=== PATIENT | male | born 1955 | race Two or more races ===

== ENCOUNTER 2020-06-16 13:41 | Inpatient (IN) | payer MEDICARE, MEDICAID ==
[~2020-06-16] VITALS: Ht 182.9 cm; Wt 108.0 kg
[2020-06-16] MEDS ORDERED: magnesium hydroxide 30ml (MOM) UD suspension PO PRN (16:05)
[2020-06-16] MEDS ORDERED: mag hydrox/Alum hydrox/simeth 30ml oral suspension PO PRN (16:05)
[2020-06-16] MEDS ORDERED: NICOTINE POLACRILEX 2 MG LOZENGE BC PRN (16:05)
[2020-06-16] MEDS ORDERED: traZODone 50mg tablet PO PRN (16:05)
[2020-06-16] MEDS ORDERED: acetaminophen 325mg tablet PO PRN ×2 (16:05)
[2020-06-16] MEDS ORDERED: loperamide 2mg capsule PO PRN (16:05)
[2020-06-16] MEDS ORDERED: DILT180C66 PO (16:27)
[2020-06-16] MEDS ORDERED: coumadin (16:27)
[2020-06-16] MEDS ORDERED: RISP2TAB85 PO (16:27)
[2020-06-16] MEDS ORDERED: FLO0.4C PO (16:27)
--- NOTE | 2020-06-17 14:50 | NUR ---
Admission Note: Pt. arrived on the unit at approximately 1450 in a stretcher accompanied by EMS and security. He was transferred from [facility]. Pt. is currently homeless and was placed on a 5150 for GD after drinking and getting on a bus to what he thought was [place], however ending up in [place]. Pt. has a history of schizoaffective disorder with Bipolar, and has had multiple previous psych hospital admissions. His father two years ago, and it was reported that since that time he has been non-compliant with medications or treatment. Pt's toxicology screen was positive for amphetamines, but he denies any recent drug use. He does admit to drinking approximately a 6-pack of beer/day. Pt. belongings inventoried and safety check completed by [employer]. Pt. is A&O X4 and cooperative with assessment. Pt. scored as a high suicide risk on the [place] Suicide Risk Assessment, with a plan to jump in front of a bus. However, he is able to contract for safety while on the unit. Dr. Johnston notified, and Q 15 min safety checks ordered. Pt. also reports A/DUMONT which have been worsening since the age of 59. When questioned further regarding these he states, "It is a man and a woman. They mostly bash on me and expose all of my shortcomings." He denies any V/DUMONT. Addendum: 06/17/20 at 1730 by Kathie Andrew RN Pt's Son Shay (emergency contact) [phone]
[2020-06-17 15:15] VITALS: BP 109/83
[2020-06-17 19:12] VITALS: BP 117/69
[2020-06-17] MEDS ORDERED: warfarin 5mg tablet PO ONE (21:00)
[2020-06-17] MEDS: risperiDONE 2mg tablet PO SCH (21:26)
--- NOTE | 2020-06-17 23:04 | NUR ---
Nursing Progress Note: Legal hold: 5150 Client on involuntary status for DTS Report received from [facility] with use of SBAR Why are they here: Pt. arrived on the unit at approximately 1450 in a stretcher accompanied by EMS and security. He was transferred from [facility]. Pt. is currently homeless and was placed on a 5150 for GD after drinking and getting on a bus to what he thought was [place], however ending up in [place]. Pt. has a history of schizoaffective disorder with Bipolar, and has had multiple previous psych hospital admissions. His father two years ago, and it was reported that since that time he has been non-compliant with medications or treatment. Pt's toxicology screen was positive for amphetamines, but he denies any recent drug use. He does admit to drinking approximately a 6-pack of beer/day. Pt. belongings inventoried and safety check completed by [employer]. Pt. is A&O X4 and cooperative with assessment. Pt. scored as a high suicide risk on the [place] Suicide Risk Assessment, with a plan to jump in front of a bus. However, he is able to contract for safety while on the unit. Dr. Johnston notified, and Q 15 min safety checks ordered. Pt. also reports A/DUMONT which have been worsening since the age of 59. When questioned further regarding these he states, "It is a man and a woman. They mostly bash on me and expose all of my shortcomings." He denies any V/DUMONT. Assessment What has happened this shift: Pt was sitting in the group room at change of shift with a blanket wrapped around him. Pt states he is watching tv because it helps drowned out the voices he is hearing. Pt states he was told he isnt going to live to make it to see 02 of February because of his liver. Pt states he doesnt really have any plans for his life at this point, because he doesnt know how long hes going to live. Pt had both flu and pneumonia vaccine tonight, pt tolerated well. S/I, H/I: denies A/VH: hearing voices Sleep: see sleep hours, pt states he didnt sleep well last night because where he was but he is certain he will sleep well tonight because its quiet. ADL's: independent Group attendance: no evening groups Were meds taken: yes Any med S/E: None reported or observed Mental Status Exam Appearance: disheveled, long hair, wearing green scrubs with blanket wrapped around him. Eye contact: good Behavior: calm cooperative watching tv Speech: normal rate and rhythm Mood: depressed, hopeless Affect: withdrawn Thought process: linear Thought Content: hearing voices, he is here thinking he would like to find an alcohol recovery treatment center to live in. Cognition: a/ox4 Insight: fair Judgment: fair Interventions Therapeutic interventions: Introduced self and established rapport, maintained a safe and supportive environment, ensured contract for safety, provided active listening and positive encouragement, encouraged participation on the unit, spoke with pt.s mom with pt.s consent, and maintained Q 15min safety checks. Restraints/seclusion/emergency medication: None Justification of Continued Inpatient Treatment: Pt. requires interruption of current crisis, medication adjustments, and a safe and supportive environment.
[2020-06-18 08:22] VITALS: BP 113/76
[2020-06-18] MEDS: tamsulosin 0.4mg capsule PO SCH (08:45)
[2020-06-18] MEDS: diltiazem CD 180mg cap (once-daily) PO SCH (08:45)
[2020-06-18] MEDS: nicotine 14mg patch - 24hr TD SCH (08:46)
[2020-06-18 09:15] LABS: CLARITY,URINE CLEAR (Clear); COLOR,URINE YELLOW (Yellow); GLUCOSE, URINE NEGATIVE (Neg); KETONES,URINE NEGATIVE (Neg); LEUKOCYTE ESTERASE ,URINE NEGATIVE (Neg); NITRITES, URINE NEGATIVE (Neg); OCCULT BLOOD,URINE NEGATIVE (Neg); PH,URINE 5.5 (4.8-8.0); PROTEIN,URINE NEGATIVE (Neg); UROBILINOGEN,URINE 0.2 E.U/dL (0.2-1.0)
[2020-06-18 09:19] LABS: UA COLLECTION TYPE CLN CATCH MIDSTREAM
[2020-06-18] MEDS ORDERED: FLU VACC QS2020-21(6MOS UP)/PF 60 MCG/0.5 ML SYRINGE IMVAC ONE (10:00)
[2020-06-18] MEDS ORDERED: pneumococcal 23-VAL P-sac vacc 25 mcg/0.5ml vial IMVAC ONE (10:00)
[2020-06-18 10:04] LABS: BASOPHILS % (AUTO) 0.7 % (0-1); EOSINOPHILS # (AUTO) 0.1 X10'3 (0-0.9); EOSINOPHILS % (AUTO) 1.9 % (0-6); HEMATOCRIT 44.4 % (42.0-52.0); HEMOGLOBIN 14.8 g/dl (14.0-17.9); LYMPHOCYTES # (AUTO) 1.7 X10'3 (1.1-4.8); LYMPHOCYTES % (AUTO) 24.6 % (21-51); MEAN CORPUSCULAR HEMOGLOBIN 31.8 PG (27.0-31.0); MEAN CORPUSCULAR HGB CONC 33.3 g/dL (33.0-36.5); MEAN CORPUSCULAR VOLUME 95.5 FL (78-98); MEAN PLATELET VOLUME 8.1 FL (7.4-10.4); MONOCYTES # (AUTO) 0.4 X10'3 (0-0.9); MONOCYTES % (AUTO) 6.4 % (2-12); NEUTROPHILS # (AUTO) 4.5 X10'3 (1.8-7.7); NEUTROPHILS % (AUTO) 66.4 % (42-75); PLATELET COUNT 60 X10'3 (140-440); RED BLOOD COUNT 4.65 X10'6 (4.70-6.10); RED CELL DISTRIBUTION WIDTH 13.2 % (11.5-14.5); WHITE BLOOD COUNT 6.8 X10'3 (4.5-11.0)
[2020-06-18 10:14] LABS: PARTIAL THROMBOPLASTIN TIME 30 SECONDS (22-32)
[2020-06-18 10:24] LABS: ALANINE AMINOTRANSFERASE 98 U/L (12-78); ALBUMIN/GLOBULIN RATIO 0.8 (1.1-1.5); ALKALINE PHOSPHATASE 57 IU/L (46-116); ANION GAP 2 (8-16); ASPARTATE AMINO TRANSFERASE 89 U/L (10-37); BILIRUBIN,TOTAL 0.3 MG/DL (0.1-1.0); BLOOD UREA NITROGEN 17 MG/DL (7-18); BUN/CREATININE RATIO 21.3 (5.4-32.0); CALCIUM 8.6 MG/DL (8.5-10.1); CHLORIDE 105 MMOL/L (99-107); CHOL/HDL RATIO 2.1 (0.00-4.99); CHOLESTEROL 155 MG/DL (0-200); GLUCOSE 97 MG/DL (70-104); HDL CHOLESTEROL 74 MG/DL (35-60); LDL CHOLESTEROL 68 MG/DL (50-100); SODIUM 138 MMOL/L (135-145); TOTAL CARBON DIOXIDE 30.8 MMOL/L (24-32); TRIGLYCERIDES 62 MG/DL (20-135); eGFR > 90 ML/MIN
--- NOTE | 2020-06-18 15:48 | NUR ---
Nursing Progress Note: Legal hold: 5150 Client on involuntary status for GD Report received from nurse with use of SBAR: DESTINI Richmond Why are they here: Pt. was transferred from [facility]. Pt. is currently homeless and was placed on a 5150 for GD after drinking and getting on a bus to what he thought was [place], however ending up in [place]. Pt. has a history of schizoaffective disorder with Bipolar, and has had multiple previous psych hospital admissions. His father two years ago, and it was reported that since that time he has been non-compliant with medications or treatment. Pt's toxicology screen was positive for amphetamines, but he denies any recent drug use. He does admit to drinking approximately a 6-pack of beer/day. Pt. scored as a high suicide risk on the [place] Suicide Risk Assessment, with a plan to jump in front of a bus. However, he is able to contract for safety while on the unit. Pt. also reports A/DUMONT which have been worsening since the age of 59. When questioned further regarding these he states, "It is a man and a woman. They mostly bash on me and expose all of my shortcomings." He denies any V/DUMONT. Assessment What has happened this shift: Received pt. sleeping in bed at the beginning of the shift, he was awoken by staff to attend breakfast in the group room. Afterwards, pt. retreated to bed and continued to isolate here napping intermittently throughout much of the day. 1:1 completed at bedside, pt. presents as cooperative and pleasant, however withdrawn. He denies any current S/I, however admits that the thoughts come and go. Pt. states, "I feel safe here, I'm happy to not be out on the streets." When questioned regarding A/V/DUMONT, pt. denies these as well and states, "It's nice and quiet here." He reports that his A/DUMONT are worsened by being in a loud and noisy environment. Pt's thought process is tangental and and he frequently wanders off topic, however is able to be redirected. Pt. attends all meals, and awakens in the afternoon to attend snack. He then remains up sitting in the Group Room and telephones his son. Pt. reports that he would possibly like to discharge to [facility] in [place], [place] because this is a place he has stayed before and he would be close to his son, pediatric social worker is aware. Urine sample obtained per MD order and was WNL, pt. denies any urinary frequency or burning. S/I, H/I: Denies A/VH: Denies, does not appear internally preoccupied Sleep: Pt. reports he slept well, sleep hours are 7.5 and pt. naps intermittently throughout the shift. ADL's: Requires some encouragement from staff Group attendance: No Were meds taken: Yes Any med S/E: None Mental Status Exam Appearance: Hair somewhat disheveled, however appropriately dressed Eye contact: Good Behavior: Cooperative, pleasant, and fatigued Speech: WNL, somewhat slurred and difficult to understand at times, but pt. repeats self as necessary Mood: Pleasant Affect: Blunted with animation Thought process: Tangental, but able to be redirected Thought Content: Ongoing A/DUMONT Cognition: A&O X4 Insight: Poor Judgment: Poor Interventions PRN's used: None Therapeutic interventions: Ensured contract for safety, maintained a safe and therapeutic environment, provided clear and simple instructions, reoriented to reality as needed, encouraged independent performance of ADLs and participation on the unit, obtained ordered urine specimen which was WNL, and maintained Q 15min safety checks. Restraints/seclusion/emergency medication: N/A Justification of Continued Inpatient Treatment: Pt. requires interruption of current crisis, medication adjustments, and a safe and supportive environment.
[2020-06-18 19:40] VITALS: BP 116/74
[2020-06-18] MEDS: risperiDONE 2mg tablet PO SCH (20:11)
[2020-06-18] MEDS ORDERED: aripiprazole 5mg tablet PO SCH (21:00)
[2020-06-18] MEDS ORDERED: warfarin 5mg tablet PO ONE (21:00)
--- NOTE | 2020-06-18 22:21 | NUR ---
Nursing Progress Note: Legal hold: 5150 Client on involuntary status for GD Report received from nurse with use of SBAR: DESTINI Richmond Why are they here: Pt. was transferred from [facility]. Pt. is currently homeless and was placed on a 5150 for GD after drinking and getting on a bus to what he thought was [place], however ending up in [place]. Pt. has a history of schizoaffective disorder with Bipolar, and has had multiple previous psych hospital admissions. His father two years ago, and it was reported that since that time he has been non-compliant with medications or treatment. Pt's toxicology screen was positive for amphetamines, but he denies any recent drug use. He does admit to drinking approximately a 6-pack of beer/day. Pt. scored as a high suicide risk on the [place] Suicide Risk Assessment, with a plan to jump in front of a bus. However, he is able to contract for safety while on the unit. Pt. also reports A/DUMONT which have been worsening since the age of 59. When questioned further regarding these he states, "It is a man and a woman. They mostly bash on me and expose all of my shortcomings." He denies any V/DUMONT. Assessment What has happened this shift: Pt was sitting in the group room at change of shift watching tv. Pt denies s/i, denies a/vh. Pt states he is hopeful to get to [facility], to be near his family. [place] [facility] [place] 6 miles from his son. Pt states he is hopeful the administrator social welfare can get him near his son. S/I, H/I: Denies A/VH: Denies, does not appear internally preoccupied Sleep: see sleep hours ADL's: Requires some encouragement from staff Group attendance: No Were meds taken: Yes Any med S/E: None Mental Status Exam Appearance: Hair somewhat disheveled, however appropriately dressed Eye contact: Good Behavior: Cooperative, pleasant, and fatigued Speech: WNL, somewhat slurred and difficult to understand at times, but pt. repeats self as necessary Mood: depressed Affect: Blunted with animation Thought process: Tangential, but able to be redirected Thought Content: Ongoing A/DUMONT Cognition: A&O X4 Insight: Poor Judgment: Poor Interventions PRN's used: None Therapeutic interventions: Ensured contract for safety, maintained a safe and therapeutic environment, provided clear and simple instructions, reoriented to reality as needed, encouraged independent performance of ADLs and participation on the unit, obtained ordered urine specimen which was WNL, and maintained Q 15min safety checks. Restraints/seclusion/emergency medication: N/A Justification of Continued Inpatient Treatment: Pt. requires interruption of current crisis, medication adjustments, and a safe and supportive environment.
[2020-06-19 07:22] LABS: BASOPHILS # (AUTO) 0.1 X10'3 (0-0.2); EOSINOPHILS # (AUTO) 0.2 X10'3 (0-0.9); EOSINOPHILS % (AUTO) 2.3 % (0-6); HEMATOCRIT 44.7 % (42.0-52.0); HEMOGLOBIN 14.9 g/dl (14.0-17.9); LYMPHOCYTES # (AUTO) 1.9 X10'3 (1.1-4.8); LYMPHOCYTES % (AUTO) 28.9 % (21-51); MEAN CORPUSCULAR HEMOGLOBIN 31.9 PG (27.0-31.0); MEAN CORPUSCULAR HGB CONC 33.2 g/dL (33.0-36.5); MEAN PLATELET VOLUME 7.9 FL (7.4-10.4); MONOCYTES # (AUTO) 0.5 X10'3 (0-0.9); MONOCYTES % (AUTO) 7.2 % (2-12); NEUTROPHILS # (AUTO) 4.1 X10'3 (1.8-7.7); NEUTROPHILS % (AUTO) 60.6 % (42-75); PLATELET COUNT 59 X10'3 (140-440); RED BLOOD COUNT 4.65 X10'6 (4.70-6.10); RED CELL DISTRIBUTION WIDTH 13.3 % (11.5-14.5); WHITE BLOOD COUNT 6.7 X10'3 (4.5-11.0)
[2020-06-19 08:00] VITALS: BP 122/86
[2020-06-19] MEDS: nicotine 14mg patch - 24hr TD SCH (08:59)
[2020-06-19] MEDS: diltiazem CD 180mg cap (once-daily) PO SCH (08:59)
[2020-06-19] MEDS: tamsulosin 0.4mg capsule PO SCH (09:00)
--- NOTE | 2020-06-19 10:00 | NUR ---
Group Therapy: Process Group This Clinicians goals for this process group were as follows: (1) Ask scaling questions about Patients current anxiety, depression, and irritability symptoms as a check-in. (2) Share with patients psychoeducation about the importance of being able to identify safe, and supportive people who can assist them with their mental and emotional needs. (3) Share psychoeducation on interpersonal boundaries and considerations to assist patients in developing the ability to discern which groups and individuals will be helpful in assisting them during times of emotional escalation and crisis. (4) Engage patients in discussion of the topics discussed within the group milieu. Patient identified experiencing the following levels of anxiety, depression, and anger/irritability while present in the group milieu (0-low; 10-High). Anxiety: 5-6/10 Depression: 2/10 Anger/irritability: No answer give. Comments made about lack of sleep and hallucinations during the night Patient presented as properly oriented x4 during the process group. Patient was dressed in green hospital scrubs within the milieu. Psychomotor activity was unremarkable. Patient's thought content was clear, and concrete. Patient's thought process was circumstantial, and tangential. For example this Clinician asked Patient to deep his level of anger/irritability from 0-10, ten being high. Patient began commenting on his lack of sleep the previous night, in a night that was marked by hallucinations that he wasn't sure were, "Real, or not," but he stated that he felt like they were, "Bashing me." This Clinician did not observe Patient responding to any internal stimuli during session. The rate, latency, and tone of Patients speech was within normal limits. Patients speech appeared slightly circumstantial, but was largely understandable. Patient maintained intermittent eye contact with this Clinician. Patient presented in calm euthymic mood, with congruent affect during the process group. Patient presented as open, cooperative, verbally engaged when addressed by this Clinician, and nonobtrusive within the group milieu. In the context of sharing aspects of his mental health situation with friends and family, Patient reported that he tended not to do this, because he preferred to keep the topic of conversation off of him, so that it focused on others instead. Aneesh Baca MA, PIPE LINE REPAIRER Addendum: 06/19/20 at 1137 by Aneesh Baca SS Amended: Links added.
[2020-06-19] MEDS: LORazepam 1 MG tablet PO PRN (15:36)
--- NOTE | 2020-06-19 16:19 | NUR ---
Nursing Progress Note: Legal hold: 5150 Expires 06/20 @ 1445 Client on involuntary status for GD Report received from nurse with use of SBAR: DESTINI Richmond Why are they here: Pt. was transferred from [facility]. Pt. is currently homeless and was placed on a 5150 for GD after drinking and getting on a bus to what he thought was [place], however ending up in [place]. Pt. has a history of schizoaffective disorder with Bipolar, and has had multiple previous psych hospital admissions. His father two years ago, and it was reported that since that time he has been non-compliant with medications or treatment. Pt's toxicology screen was positive for amphetamines, but he denies any recent drug use. He does admit to drinking approximately a 6-pack of beer/day. Pt. scored as a high suicide risk on the [place] Suicide Risk Assessment, with a plan to jump in front of a bus. However, he is able to contract for safety while on the unit. Pt. also reports A/DUMONT which have been worsening since the age of 59. When questioned further regarding these he states, "It is a man and a woman. They mostly bash on me and expose all of my shortcomings." He denies any V/DUMONT. Assessment What has happened this shift: Received patient sleeping at shift, no distress noted. Pt wakes for vitals, AM medications and 1:1. Pt declined his breakfast states I was too tired, but ate 100% of lunch. Pt slept most of the morning, states he didnt sleep well. It is difficult to understand patient r/t to his mumbled speech. Pt states he has a speech impediment. Pt is compliant with medication and care. Pt denies SI/HI/AH/VH. When asked about S/I, pt states I am eventually going to . He states this is r/t his medical issues. Has no plan. Pt was up in group room during PM group, but was not engaged in session. Pt reported feeling some anxiety and requested Ya throw something at me. PRN Ativan administered with positive effect. Pt does go off topic at times, but when question is repeated pt answers. Pt has no somatic complaints, when asked about urination its okay for now. No ETOH withdrawal symptoms reported or observed. S/I, H/I: Denies both. A/VH: Denies, does not appear internally preoccupied Sleep: 8.25 hours per Sleep Assessment. Napped after breakfast. ADL's: Independent with prompting. Group attendance: Went to PM group sat in back of room. Were meds taken: Yes, without incident. Any med S/E: None reported or observed. Mental Status Exam Appearance: Disheveled, scruffy facial hair, wearing green unit scrubs. Eye contact: Good Behavior: Cooperative, pleasant, slept in AM, then up sitting in group room. Speech: Somewhat slurred and difficult to understand at times, but pt. repeats self as necessary Mood: Euthymic, pleasant Affect: Blunted with animation Thought process: Tangential, but able to be redirected Thought Content: Situational Cognition: A&O X4 Insight: Poor Judgment: Poor Interventions PRN's used: Ativan Therapeutic interventions: Maintained a safe and therapeutic environment, provided clear and simple instructions, reoriented to reality as needed, encouraged independent performance of ADLs and participation on the unit, obtained ordered urine specimen which was WNL, and maintained Q 15min safety checks. Restraints/seclusion/emergency medication: N/A Justification of Continued Inpatient Treatment: Patient requires interruption of current crisis, medication adjustments, and a safe and supportive environment.
[2020-06-19 19:19] VITALS: BP 132/85
[2020-06-19] MEDS: aripiprazole 5mg tablet PO SCH (20:22)
[2020-06-19] MEDS: traZODone 50mg tablet PO SCH (20:22)
[2020-06-19] MEDS ORDERED: warfarin 5mg tablet PO ONE (21:00)
--- NOTE | 2020-06-19 21:34 | NUR ---
Nursing Progress Note: Legal hold: 5150 Expires 06/20 @ 1445 Client on involuntary status for GD Report received from nurse with use of SBAR: DESTINI Chau Why are they here: Pt. was transferred from [facility]. Pt. is currently homeless and was placed on a 5150 for GD after drinking and getting on a bus to what he thought was [place], however ending up in [place]. Pt. has a history of schizoaffective disorder with Bipolar, and has had multiple previous psych hospital admissions. His father two years ago, and it was reported that since that time he has been non-compliant with medications or treatment. Pt's toxicology screen was positive for amphetamines, but he denies any recent drug use. He does admit to drinking approximately a 6-pack of beer/day. Pt. scored as a high suicide risk on the [place] Suicide Risk Assessment, with a plan to jump in front of a bus. However, he is able to contract for safety while on the unit. Pt. also reports A/DUMONT which have been worsening since the age of 59. When questioned further regarding these he states, "It is a man and a woman. They mostly bash on me and expose all of my shortcomings." He denies any V/DUMONT. Assessment What has happened this shift: Pt was sitting in group room watching tv at change of shift. Pt states he had a good day and mentions having ativan earlier and states that really relaxed him. Pt states he didnt sleep well last night and suggests maybe it was too noisy for him with moving to a new room. Pt was given earplugs tonight to see if this helps. Pt socializes minimally with other patients when they speak to him. S/I, H/I: Denies both. A/VH: Denies, does not appear internally preoccupied Sleep:see sleep hours ADL's: Independent with prompting. Group attendance: no evening groups Were meds taken: Yes Any med S/E: None reported or observed. Mental Status Exam Appearance: Disheveled, scruffy facial hair, wearing green unit scrubs. Eye contact: Good Behavior: Cooperative, pleasant, Speech: Somewhat slurred and difficult to understand at times, but pt. repeats self as necessary Mood: depressed, some anxiety Affect: Blunted but brightens at times Thought process: Tangential Thought Content: talking about not being able to sleep well last night Cognition: A&O X4 Insight: Poor Judgment: Poor Interventions PRN's used: trazadone Therapeutic interventions: Maintained a safe and therapeutic environment, provided clear and simple instructions, reoriented to reality as needed, encouraged independent performance of ADLs and participation on the unit, obtained ordered urine specimen which was WNL, and maintained Q 15min safety checks. Restraints/seclusion/emergency medication: N/A Justification of Continued Inpatient Treatment: Patient requires interruption of current crisis, medication adjustments, and a safe and supportive environment.
[2020-06-20 07:05] LABS: BASOPHILS # (AUTO) 0.1 X10'3 (0-0.2); BASOPHILS % (AUTO) 0.9 % (0-1); EOSINOPHILS # (AUTO) 0.1 X10'3 (0-0.9); EOSINOPHILS % (AUTO) 1.8 % (0-6); HEMATOCRIT 43.6 % (42.0-52.0); HEMOGLOBIN 14.7 g/dl (14.0-17.9); LYMPHOCYTES # (AUTO) 1.6 X10'3 (1.1-4.8); LYMPHOCYTES % (AUTO) 22.8 % (21-51); MEAN CORPUSCULAR HEMOGLOBIN 32.2 PG (27.0-31.0); MEAN CORPUSCULAR HGB CONC 33.7 g/dL (33.0-36.5); MEAN CORPUSCULAR VOLUME 95.6 FL (78-98); MEAN PLATELET VOLUME 7.9 FL (7.4-10.4); MONOCYTES # (AUTO) 0.6 X10'3 (0-0.9); NEUTROPHILS # (AUTO) 4.7 X10'3 (1.8-7.7); NEUTROPHILS % (AUTO) 66.5 % (42-75); PLATELET COUNT 59 X10'3 (140-440); RED BLOOD COUNT 4.56 X10'6 (4.70-6.10); RED CELL DISTRIBUTION WIDTH 13.5 % (11.5-14.5); WHITE BLOOD COUNT 7.1 X10'3 (4.5-11.0)
[2020-06-20] MEDS: nicotine 14mg patch - 24hr TD SCH (07:33)
[2020-06-20] MEDS: diltiazem CD 180mg cap (once-daily) PO SCH (07:33)
[2020-06-20] MEDS: tamsulosin 0.4mg capsule PO SCH (07:33)
[2020-06-20 07:40] VITALS: BP 139/84
--- NOTE | 2020-06-20 10:00 | NUR ---
Group Therapy: Process Group This Clinicians goals for this process group were as follows: (1) Ask scaling questions about Patients current anxiety, depression, and irritability symptoms as a check-in. (2) Share with patients psychoeducation about personal boundariesrigid, porous, and healthy. (3) Share psychoeducation on different types of personal boundariesphysical, intellectual, emotional, sexual, material, timeand discuss Rights of assertive individuals. (4) Engage Patients in discussion of the topics discussed within the group milieu. Patient identified experiencing the following levels of anxiety, depression, and anger/irritability while present in the group milieu (0-low; 10-High). Anxiety: 11/09 Depression: 09/11 Anger/irritability: 11/09 Patient presented as properly oriented x4 during the process group. Patient was dressed in [facility] scrubs within the milieu. Psychomotor activity was unremarkable. Patient's thought content was clear, and concrete. Patient's thought process was clear, coherent, and linear. This Clinician did not observe Patient responding to any internal stimuli during session. The rate, latency, and tone of Patients speech was within normal limits. Patients speech was clear, and understandable. Patient maintained intermittent eye contact with this Clinician during the brief time that he was in the group milieu. Patient presented in calm euthymic mood, with congruent affect during the process group. Patient presented as cooperative, verbally engaged when addressed by this Clinician, and nonobtrusive within the group milieu. Patient reported that he was feeling restless during his initial check-in with this Clinician, and reported that he felt tension in his, Solar plexus. He mentioned that he was spending a lot of time thinking about where he was going to be going after he was discharged from the [place]. Patient did not participate in a substantial way during the process group discussion on personal boundaries. He left shortly after the initial check-ins that this Clinician did with his peers and did not return. Aneesh Baca MA, ADMINISTRATION PHYSICIAN Addendum: 11/20/20 at 0819 by Aneesh MEDEROS Amended: Links added.
--- NOTE | 2020-06-20 12:07 | NUR ---
Nursing Progress Note: Legal hold: 5150 Expires 06/20 @ 1445 Client on involuntary status for GD Report received from DESTINI Richmond with use of SBAR Why are they here: Pt. was transferred from [facility]. Pt. is currently homeless and was placed on a 5150 for GD after drinking and getting on a bus to what he thought was [place], however ending up in [place]. Pt. has a history of schizoaffective disorder with Bipolar, and has had multiple previous psych hospital admissions. His father two years ago, and it was reported that since that time he has been non-compliant with medications or treatment. Pt's toxicology screen was positive for amphetamines, but he denies any recent drug use. He does admit to drinking approximately a 6-pack of beer/day. Pt. scored as a high suicide risk on the [place] Suicide Risk Assessment, with a plan to jump in front of a bus. However, he is able to contract for safety while on the unit. Pt. also reports A/DUMONT which have been worsening since the age of 59. When questioned further regarding these he states, "It is a man and a woman. They mostly bash on me and expose all of my shortcomings." He denies any V/DUMONT. Assessment What has happened this shift: Patient was awake and lying on his back at change of shift. Took medications, went to breakfast, and attended morning group. Reports having a BM but slightly difficult. Eating well. Tangential at times, with mumbled speech which is hard to understand. Reports feeling "sad." Tried to see his mother to "say goodbye" due to ESLD, but she reported him to police. When asked about AH's states "it's just jibberish I hear, like they're down the schroeder, but it's not bothering me much." Denies suicidal thoughts but states, "but I know I'm going to ." S/I, H/I: Denies A/VH: Auditory jibberish Sleep: napped ADL's: self Group attendance: yes Were meds taken: Yes Any med S/E: None reported or observed. Mental Status Exam Appearance: Disheveled Eye contact: Good Behavior: Cooperative, pleasant Speech: mumbles Mood: Sad, pleasant Affect: pleasant Thought process: Tangential Thought Content: circumstantial Cognition: Alert Insight: Poor Judgment: Poor Interventions PRN's used: None Therapeutic interventions: Maintained a safe and therapeutic environment, provided clear and simple instructions, reoriented to reality as needed, encouraged independent performance of ADLs and participation on the unit, obtained ordered urine specimen which was WNL, and maintained Q 15min safety checks. Restraints/seclusion/emergency medication: N/A Justification of Continued Inpatient Treatment: Patient requires interruption of current crisis, medication adjustments, and a safe and supportive environment.
[2020-06-20 19:24] VITALS: BP_SYST 105; BP_SYST 132; BP_DIAS 69; BP_DIAS 91
[2020-06-20] MEDS: LORazepam 1 MG tablet PO PRN (20:07)
[2020-06-20] MEDS: traZODone 50mg tablet PO SCH (20:07)
[2020-06-20] MEDS: aripiprazole 5mg tablet PO SCH (20:08)
[2020-06-20] MEDS ORDERED: warfarin 5mg tablet PO ONE (21:00)
--- NOTE | 2020-06-21 00:27 | NUR ---
Nursing Progress Note: Legal hold: 5250 for being gravely disabled Report received from Renetta GEORGES with use of SBAR Why are they here: Pt. was transferred from [facility]. Pt. is currently homeless and was placed on a 5150 for GD after drinking and getting on a bus to what he thought was [place], however ending up in [place]. Pt. has a history of schizoaffective disorder with Bipolar, and has had multiple previous psych hospital admissions. His father two years ago, and it was reported that since that time he has been non-compliant with medications or treatment. Pt's toxicology screen was positive for amphetamines, but he denies any recent drug use. He does admit to drinking approximately a 6-pack of beer/day. Assessment What has happened this shift: The patient was up on the unit and cooperative with the unit routine. He was pleasant and cooperative during the evening assessment. He reports physically he feels well and that he has had a good appetite here on the unit. He reports mild anxiety. He appeared well groomed and appropriately dressed. He requires no prompting for his ADLs. He reports that he is hearing voices but they are less than on admit. He stated that make "bashing" remarks towards him and things of a sexual violent nature. He stated they are mostly mumbling. He denies visual hallucinations. He does state that he feels paranoid and was vague about describing his paranoid thoughts but did state, "I don't know if it is real but the whole world wants to kick my ass" His speech was rapid and soft and at times it was difficult to understand what he was trying to state. He denies racing thoughts. He reports his mood was "jana depressed" He denied thoughts to harm himself or others but he believes that "I'm dying by the forth of January" and that began mumbling about going to see his mother. He is alert and oriented. He is medication compliant and he denies medication side effects. His affect was congruent to stated mood. Insight and judgement are impaired by paranoia. Eye contact was WNL Justification of Continued Inpatient Treatment: The patient continues to be bothered by psychotic symptoms and paranoia.
[2020-06-21 07:31] VITALS: BP 134/87
[2020-06-21] MEDS: diltiazem CD 180mg cap (once-daily) PO SCH (07:37)
[2020-06-21] MEDS: tamsulosin 0.4mg capsule PO SCH (07:37)
[2020-06-21] MEDS: nicotine 14mg patch - 24hr TD SCH (07:37)
--- NOTE | 2020-06-21 10:00 | NUR ---
Group Therapy: Process Group This Clinicians goals for this process group were as follows: (1) Ask scaling questions about patients current anxiety, depression, and irritability symptoms as a check-in. (2) Share psychoeducation about automatic thoughts and cognitive distortions. (3) Share psychoeducation on CBT thought-stopping and, thought-reframing. (4) Discuss strategies for identifying negative, unhelpful, and/or irrational thoughts as quickly as possible to avoid unwanted escalation of mental health symptoms. (5) Process patients thoughts and reflections on this topic within the group milieu. Patient identified experiencing the following levels of anxiety, depression, and anger/irritability while present in the group milieu (0-low; 10-High). Anxiety: 11/09 Depression: 11/09 Anger/irritability: 12/09 Patient presented as properly oriented x4 during the process group. Patient was dressed in nondescript, personal clothing that were appropriate within the milieu. This Clinician observed Patient wearing a green t-shirt with the [facility] logo on it. Psychomotor activity was unremarkable. Patient's thought content was clear, and concrete. Patient's thought process was clear, coherent, and linear. This Clinician did not observe Patient responding to any internal stimuli during session. Patient did however note that at 4:30 AM this morning he began hearing voices; hence, he reported feeling tired during the process group. The rate, latency, and tone of Patients speech was within normal limits. Patients speech was clear, and understandable. Patient rarely made eye contact with this Clinician. Patient presented in calm euthymic mood, with congruent affect during the process group. Patient presented as cooperative, and nonobtrusive within the group milieu. Patient quietly left the group milieu shortly after answer initial scaling questions on his levels of depression, anxiety, and irritability. He did not participate in the group discussion on the CBT interventions of thought-stopping, thought-reframing, or thinking errors. Aneesh Baca MA, BRENDA Addendum: 06/21/20 at 1136 by Aneesh Baca SS Amended: Links added.
--- NOTE | 2020-06-21 11:47 | NUR ---
Initial: Pt admit with psychosis. Currently eating well documented with 75-100% PO intake on a heart healthy diet. LBM 06/20. No documented edema or wounds. No nutrition diagnosis at this time. Will continue to follow. Recommendations: 1) Continue heart healthy diet 2) Bowel care per rx 3) Scaled weights per rx Addendum: 06/21/20 at [address] Amended: Links added.
--- NOTE | 2020-06-21 12:06 | NUR ---
[facility] Pt's a transient from [place] and wants to return there but has run out of his SSDI money, will get disbursement on the 04 of July. When pt's ready for d/c he will go to the Coun[facility] to wait for his SSI disbursement and get his bus ticket back to [place]. Tessie PachecoPHOTOGRAPHER Addendum: 06/21/20 at 1208 by Tessie Pacheco SS Amended: Links added.
[2020-06-21 12:07] LABS: BASOPHILS # (AUTO) 0.1 X10'3 (0-0.2); BASOPHILS % (AUTO) 1.1 % (0-1); EOSINOPHILS # (AUTO) 0.1 X10'3 (0-0.9); HEMOGLOBIN 15.6 g/dl (14.0-17.9); LYMPHOCYTES # (AUTO) 1.5 X10'3 (1.1-4.8); MEAN CORPUSCULAR HEMOGLOBIN 32.3 PG (27.0-31.0); MEAN CORPUSCULAR HGB CONC 33.9 g/dL (33.0-36.5); MEAN CORPUSCULAR VOLUME 95.2 FL (78-98); MEAN PLATELET VOLUME 7.7 FL (7.4-10.4); MONOCYTES # (AUTO) 0.7 X10'3 (0-0.9); MONOCYTES % (AUTO) 9.5 % (2-12); NEUTROPHILS # (AUTO) 4.6 X10'3 (1.8-7.7); NEUTROPHILS % (AUTO) 65.4 % (42-75); PLATELET COUNT 62 X10'3 (140-440); RED BLOOD COUNT 4.84 X10'6 (4.70-6.10); RED CELL DISTRIBUTION WIDTH 13.4 % (11.5-14.5)
--- NOTE | 2020-06-21 15:34 | NUR ---
NURSING PROGRESS NOTE Legal hold: 5150 Expires 06/20 @ 1445 Client on involuntary status for GD Report received from DESTINI Carvajal with use of SBAR Why are they here: Pt. was transferred from [facility]. Pt. is currently homeless and was placed on a 5150 for GD after drinking and getting on a bus to what he thought was [place], however ending up in [place]. Pt. has a history of schizoaffective disorder with Bipolar, and has had multiple previous psych hospital admissions. His father two years ago, and it was reported that since that time he has been non-compliant with medications or treatment. Pt's toxicology screen was positive for amphetamines, but he denies any recent drug use. He does admit to drinking approximately a 6-pack of beer/day. Pt. scored as a high suicide risk on the [place] Suicide Risk Assessment, with a plan to jump in front of a bus. However, he is able to contract for safety while on the unit. Pt. also reports A/DUMONT which have been worsening since the age of 59. When questioned further regarding these he states, "It is a man and a woman. They mostly bash on me and expose all of my shortcomings." He denies any V/DUMONT. Assessment What has happened this shift: Patient was awake and lying on his back at change of shift. Took medications, went to breakfast, and attended morning group. Eating well. Tangential at times, with mumbled speech which is hard to understand. Reports feeling "better than when I came here." Has some mild paranoia regarding "mumbled voices, just tell me bad things." AH's "mostly just mumbling." Would like to return to [place]. Appears to be dealing well with current situation and his emotions as he is seen interacting well with his peers, talking and smiling. S/I, H/I: Denies A/VH: Auditory mumbling Sleep: None ADL's: self Group attendance: yes Were meds taken: Yes Any med S/E: None reported or observed. Mental Status Exam Appearance: neat and clean Eye contact: Good Behavior: Cooperative, pleasant Speech: mumbles Mood: brighter, pleasant Affect: pleasant Thought process: tangential at times Thought Content: voices and circumstances Cognition: Alert Insight: fair Judgment: fair Interventions PRN's used: None Therapeutic interventions: Maintained a safe and therapeutic environment, provided clear and simple instructions, reoriented to reality as needed, encouraged independent performance of ADLs and participation on the unit, obtained ordered urine specimen which was WNL, and maintained Q 15min safety checks. Restraints/seclusion/emergency medication: N/A Justification of Continued Inpatient Treatment: Patient requires interruption of current crisis, medication adjustments, and a safe and supportive environment.
[2020-06-21 19:00] VITALS: BP 105/70
[2020-06-21] MEDS ORDERED: warfarin 3mg tablet PO ONE (21:00)
[2020-06-21] MEDS: traZODone 50mg tablet PO SCH (21:25)
[2020-06-21] MEDS: aripiprazole 5mg tablet PO SCH (21:29)
--- NOTE | 2020-06-22 04:44 | NUR ---
NURSING PROGRESS NOTE Legal hold: 5150 Expires 06/20 @ 1445 Client on involuntary status for GD Report received from DESTINI Jackson with use of SBAR Why are they here: Pt. was transferred from [facility]. Pt. is currently homeless and was placed on a 5150 for GD after drinking and getting on a bus to what he thought was [place], however ending up in [place]. Pt. has a history of schizoaffective disorder with Bipolar, and has had multiple previous psych hospital admissions. His father two years ago, and it was reported that since that time he has been non-compliant with medications or treatment. Pt's toxicology screen was positive for amphetamines, but he denies any recent drug use. He does admit to drinking approximately a 6-pack of beer/day. Pt. scored as a high suicide risk on the [place] Suicide Risk Assessment, with a plan to jump in front of a bus. However, he is able to contract for safety while on the unit. Pt. also reports A/DUMONT which have been worsening since the age of 59. When questioned further regarding these he states, "It is a man and a woman. They mostly bash on me and expose all of my shortcomings." He denies any V/DUMONT. Assessment What has happened this shift: Patient was noted to be in the hallways but primarily in the community room following change of shift. 1:1 Evaluation in the community room: Patient is oriented to place, year, somewhat to situation. He watches a movie on television with keen interest. Patient denies S/I, H/I, or any hallucinations yet looks to be responding to internal stimuli. He exhibits tangential speech and flight of ideas. Patient is medication compliant, friendly, he is cooperative too. S/I, H/I: Denies A/VH: Responds to internal stimuli. Sleep: Will tally at 0500 hours. ADL's: WNL Group attendance: No group on nights. Were meds taken: Yes, medication compliant. Any med S/E: None reported or observed. Mental Status Exam Appearance: Neat and clean. Eye contact: Good. Behavior: Cooperative, pleasant. Speech: Some mumbling, tangential. Mood: "I'm feeling alright." Affect: Flat at times with brightening. Thought process: Flight of ideas. Thought Content: Cognition: Alert Insight: Fair. Judgment: Fair; Interventions PRN's used: None Therapeutic interventions: Maintained a safe and therapeutic environment, provided clear and simple instructions, reoriented to reality as needed, encouraged independent performance of ADLs and participation on the unit, obtained ordered urine specimen which was WNL, and maintained Q 15min safety checks. Restraints/seclusion/emergency medication: N/A Justification of Continued Inpatient Treatment: Patient requires interruption of current crisis, medication adjustments, and a safe and supportive environment.
[2020-06-22 06:48] LABS: BASOPHILS # (AUTO) 0.1 X10'3 (0-0.2); EOSINOPHILS # (AUTO) 0.2 X10'3 (0-0.9); HEMOGLOBIN 15.6 g/dl (14.0-17.9); LYMPHOCYTES # (AUTO) 2.1 X10'3 (1.1-4.8); MEAN CORPUSCULAR HGB CONC 33.8 g/dL (33.0-36.5); PLATELET COUNT 66 X10'3 (140-440); RED CELL DISTRIBUTION WIDTH 13.1 % (11.5-14.5); WHITE BLOOD COUNT 7.2 X10'3 (4.5-11.0)
[2020-06-22 06:49] LABS: EOSINOPHILS % (AUTO) 2.3 % (0-6); HEMATOCRIT 46.2 % (42.0-52.0); LYMPHOCYTES % (AUTO) 28.8 % (21-51); MEAN CORPUSCULAR HEMOGLOBIN 32.1 PG (27.0-31.0); MONOCYTES # (AUTO) 0.7 X10'3 (0-0.9); MONOCYTES % (AUTO) 9.7 % (2-12); NEUTROPHILS # (AUTO) 4.2 X10'3 (1.8-7.7); NEUTROPHILS % (AUTO) 58.2 % (42-75); RED BLOOD COUNT 4.87 X10'6 (4.70-6.10)
[2020-06-22 08:00] VITALS: BP 126/78
[2020-06-22] MEDS: tamsulosin 0.4mg capsule PO SCH (08:02)
[2020-06-22] MEDS: diltiazem CD 180mg cap (once-daily) PO SCH (08:02)
[2020-06-22] MEDS: nicotine 14mg patch - 24hr TD SCH (08:02)
--- NOTE | 2020-06-22 17:25 | NUR ---
NURSING PROGRESS NOTE Legal hold: 5150 Expires 06/20 @ 1445 Client on involuntary status for GD Report received from DESTINI Sotelo with use of SBAR Why are they here: Pt. was transferred from [facility]. Pt. is currently homeless and was placed on a 5150 for GD after drinking and getting on a bus to what he thought was [place], however ending up in [place]. Pt. has a history of schizoaffective disorder with Bipolar, and has had multiple previous psych hospital admissions. His father two years ago, and it was reported that since that time he has been non-compliant with medications or treatment. Pt's toxicology screen was positive for amphetamines, but he denies any recent drug use. He does admit to drinking approximately a 6-pack of beer/day. Pt. scored as a high suicide risk on the [place] Suicide Risk Assessment, with a plan to jump in front of a bus. However, he is able to contract for safety while on the unit. Pt. also reports A/DUMONT which have been worsening since the age of 59. When questioned further regarding these he states, "It is a man and a woman. They mostly bash on me and expose all of my shortcomings." He denies any V/DUMONT. Assessment What has happened this shift: Pt is pleasant, smiles and engages in conversation with RN. He states he is good, happy to be here. He reminisced about eating at his favorite restaurants in [facility] but then the conversation shifted and he began mumbling, becoming hard to understand and talking about a man and woman outside the window at night that threaten to kick my ass. He also made a statement about the womans voice in the fridge. He watched movies on tv and went to group but did not go to the patio today. S/I, H/I: Pt Denies A/VH: Pt made comments about voices hes hearing and people hes seeing as described above Sleep: 1 nap during the day ADL's: Independent Group attendance: Yes Were meds taken: Yes Any med S/E: None noted Mental Status Exam Appearance: Wearing his own clothes Eye contact: Good. Behavior: Pleasant, engaging Speech: Sometimes clear, sometimes hard to understand with mumbling, tangential. Mood: "Good Affect: Congruent to mood Thought process: Circumstantial Thought Content: Food he enjoys, people after him Cognition: Alert Insight: Poor Judgment: Fair Interventions PRN's used: None Therapeutic interventions: Maintained a safe and therapeutic environment, provided clear and simple instructions, reoriented to reality as needed, encouraged independent performance of ADLs and participation on the unit, obtained ordered urine specimen which was WNL, and maintained Q 15min safety checks. Restraints/seclusion/emergency medication: N/A Justification of Continued Inpatient Treatment: Patient requires interruption of current crisis, medication adjustments, and a safe and supportive environment.
[2020-06-22 19:00] VITALS: BP 107/74
[2020-06-22] MEDS ORDERED: warfarin 7.5mg tablet PO ONE (21:00)
[2020-06-22] MEDS: traZODone 50mg tablet PO SCH (21:22)
[2020-06-22] MEDS: aripiprazole 5mg tablet PO SCH (21:23)
--- NOTE | 2020-06-23 04:06 | NUR ---
NURSING PROGRESS NOTE Legal hold: 5150 Expires 06/20 @ 1445 Client on involuntary status for GD Report received from DESTINI Burton with use of SBAR Why are they here: Pt. was transferred from [facility]. Pt. is currently homeless and was placed on a 5150 for GD after drinking and getting on a bus to what he thought was [place], however ending up in [place]. Pt. has a history of schizoaffective disorder with Bipolar, and has had multiple previous psych hospital admissions. His father two years ago, and it was reported that since that time he has been non-compliant with medications or treatment. Pt's toxicology screen was positive for amphetamines, but he denies any recent drug use. He does admit to drinking approximately a 6-pack of beer/day. Pt. scored as a high suicide risk on the [place] Suicide Risk Assessment, with a plan to jump in front of a bus. However, he is able to contract for safety while on the unit. Pt. also reports A/DUMONT which have been worsening since the age of 59. When questioned further regarding these he states, "It is a man and a woman. They mostly bash on me and expose all of my shortcomings." He denies any V/DUMONT. Assessment What has happened this shift: Patient is well oriented, he is observed watching television in the early evening, he also resides in his room. 1:1 Interview: Patient is well oriented in no distress. He denies S/I, H/I, or any hallucinations. When ask if there is anything going on outside the window the patient replied "I'm scared to look out." Patient mumbles at times, he speaks out to someone or something in the ether. Speech becomes tangential at times. The patient is medication compliant and very friendly. He laughs at times, he is easily distracted. Some paranoia is evident. The patient is assured by this adjusto writer operator that he is in a safe place. S/I, H/I: Pt Denies A/VH: Internal stimuli is obvious. Sleep: Will tally at 0500 hours. ADL's: Independent. Group attendance: No group on evening or night nurse supervisor. Were meds taken: Yes, patient is medication compliant. Any med S/E: None noted or observed. Mental Status Exam Appearance: Dressed in civilian attire. Eye contact: Good. Behavior: Pleasant, cooperative, engaging. Speech: Sometimes clear, sometimes hard to understand with mumbling, tangential. Mood: "Good Affect: Congruent to mood. Thought process: Circumstantial Thought Content: Per day RN patient believes people outside the window are after him. Cognition: Alert. Insight: Poor. Judgment: Fair Interventions PRN's used: None. Therapeutic interventions: Maintained a safe and therapeutic environment, provided clear and simple instructions, reoriented to reality as needed, encouraged independent performance of ADLs and participation on the unit, obtained ordered urine specimen which was WNL, and maintained Q 15min safety checks. Restraints/seclusion/emergency medication: N/A Justification of Continued Inpatient Treatment: Patient requires interruption of current crisis, medication adjustments, and a safe and supportive environment.
[2020-06-23 06:43] LABS: BASOPHILS # (AUTO) 0.1 X10'3 (0-0.2); BASOPHILS % (AUTO) 1.2 % (0-1); EOSINOPHILS # (AUTO) 0.2 X10'3 (0-0.9); HEMATOCRIT 45.9 % (42.0-52.0); HEMOGLOBIN 15.6 g/dl (14.0-17.9); LYMPHOCYTES # (AUTO) 2.3 X10'3 (1.1-4.8); LYMPHOCYTES % (AUTO) 30.4 % (21-51); MEAN CORPUSCULAR HEMOGLOBIN 32.5 PG (27.0-31.0); MEAN CORPUSCULAR HGB CONC 33.9 g/dL (33.0-36.5); MEAN CORPUSCULAR VOLUME 95.7 FL (78-98); MEAN PLATELET VOLUME 7.5 FL (7.4-10.4); MONOCYTES # (AUTO) 0.8 X10'3 (0-0.9); MONOCYTES % (AUTO) 10.5 % (2-12); NEUTROPHILS # (AUTO) 4.3 X10'3 (1.8-7.7); NEUTROPHILS % (AUTO) 55.9 % (42-75); PLATELET COUNT 59 X10'3 (140-440); RED BLOOD COUNT 4.79 X10'6 (4.70-6.10); WHITE BLOOD COUNT 7.6 X10'3 (4.5-11.0)
[2020-06-23 07:33] VITALS: BP 118/80
[2020-06-23] MEDS: nicotine 14mg patch - 24hr TD SCH (08:17)
[2020-06-23] MEDS: diltiazem CD 180mg cap (once-daily) PO SCH (08:17)
[2020-06-23] MEDS: tamsulosin 0.4mg capsule PO SCH (08:17)
[2020-06-23] MEDS ORDERED: WARF3TAB56 PO (10:34)
--- NOTE | 2020-06-23 16:07 | NUR ---
NURSING PROGRESS NOTE Mikal: Legal hold: 5150 Expires 06/20 @ 1445 Client on involuntary status for GD Report received from Ana Cortes RN with use of SBAR Why are they here: Pt. was transferred from [facility]. Pt. is currently homeless and was placed on a 5150 for GD after drinking and getting on a bus to what he thought was [place], however ending up in [place]. Pt. has a history of schizoaffective disorder with Bipolar, and has had multiple previous psych hospital admissions. His father two years ago, and it was reported that since that time he has been non-compliant with medications or treatment. Pt's toxicology screen was positive for amphetamines, but he denies any recent drug use. He does admit to drinking approximately a 6-pack of beer/day. Pt. scored as a high suicide risk on the [place] Suicide Risk Assessment, with a plan to jump in front of a bus. However, he is able to contract for safety while on the unit. Pt. also reports A/DUMONT which have been worsening since the age of 59. When questioned further regarding these he states, "It is a man and a woman. They mostly bash on me and expose all of my shortcomings." He denies any V/DUMONT. Assessment What has happened this shift: Patient is well oriented, cooperative with med pass, pt resting in bed this morning after breakfast. 1:1 Interview: Patient is well oriented in no distress. He denies S/I, H/I, or any hallucinations. He states he was hearing voices last night coming from the window saying "we are out to get you." States that he feels the medication is helping him. Speech becomes tangential at times. He laughs at times, he is easily distracted. Some paranoia is evident. The patient is assured by this casualty underwriter that he is in a safe place. S/I, H/I: Pt Denies A/VH: Internal stimuli is obvious. Sleep: ADL's: Independent. Group attendance: Were meds taken: Yes, patient is medication compliant. Any med S/E: None noted or observed. Mental Status Exam Appearance: Dressed in civilian attire. Eye contact: Good. Behavior: Pleasant, cooperative, engaging. Speech: Sometimes clear, sometimes hard to understand with mumbling, tangential. Mood: "Good Affect: Congruent to mood. Thought process: Circumstantial Thought Content: Patient believes people outside the window are after him. Cognition: Alert. Insight: Poor. Judgment: Fair Interventions PRN's used: None. Therapeutic interventions: Maintained a safe and therapeutic environment, provided clear and simple instructions, reoriented to reality as needed, encouraged independent performance of ADLs and participation on the unit, obtained ordered urine specimen which was WNL, and maintained Q 15min safety checks. Restraints/seclusion/emergency medication: N/A Justification of Continued Inpatient Treatment: Patient requires interruption of current crisis, medication adjustments, and a safe and supportive environment.
[2020-06-23 20:00] VITALS: BP 122/74
[2020-06-23] MEDS: ARIPIPRAZOLE 10 MG TABLET PO SCH (20:43)
[2020-06-23] MEDS: traZODone 50mg tablet PO SCH (20:44)
[2020-06-23] MEDS ORDERED: warfarin 10mg tablet PO ONE (21:00)
--- NOTE | 2020-06-24 02:29 | NUR ---
NURSING PROGRESS NOTE Legal hold: 5250 Client on involuntary status for GD Report received from DESTINI Chau with use of SBAR Why are they here: Pt. was transferred from [facility]. Pt. is currently homeless and was placed on a 5150 for GD after drinking and getting on a bus to what he thought was [place], however ending up in [place]. Pt. has a history of schizoaffective disorder with Bipolar, and has had multiple previous psych hospital admissions. His father two years ago, and it was reported that since that time he has been non-compliant with medications or treatment. Pt's toxicology screen was positive for amphetamines, but he denies any recent drug use. He does admit to drinking approximately a 6-pack of beer/day. Pt. scored as a high suicide risk on the [place] Suicide Risk Assessment, with a plan to jump in front of a bus. However, he is able to contract for safety while on the unit. Pt. also reports A/DUMONT which have been worsening since the age of 59. When questioned further regarding these he states, "It is a man and a woman. They mostly bash on me and expose all of my shortcomings." He denies any V/DUMONT. Assessment What has happened this shift: The patient was seen in the community room for 1:1. He reports that he's feeling better, still a little paranoid, but not so much as before. He says the voices are not so bad. The patient has been talking to his youngest son, who wants him to remain here as long as possible, and under a doctors care. The patient may be able to go stay with him, but he has to be better. The patient is well oriented, but is easily distracted as we talk. There is evidence of on-going paranoia. The patient spends the evening watching tv. He is compliant with medications, and goes to be soon after. S/I, H/I: Denies A/VH: Admits to on-going hallucinations and paranoia. Sleep: See sleep assessment ADL's: Independent. 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 Were meds taken: Yes. Any med S/E: None reported or observed. Mental Status Exam Appearance: Older man with long black hair pulled back, wearing appropriate street clothes. . Eye contact: Good. Behavior: Pleasant, cooperative, engaging, little paranoid. Speech: Clear, but mumbles at times. Mood: "Good Affect: Congruent to mood. Thought process: Circumstantial Thought Content: Getting better. Cognition: Alert. Insight: Poor. Judgment: Fair Interventions PRN's used: None. Therapeutic interventions: Maintained a safe and therapeutic environment, provided clear and simple instructions, reoriented to reality as needed, encouraged independent performance of ADLs and participation on the unit, obtained ordered urine specimen which was WNL, and maintained Q 15min safety checks. Restraints/seclusion/emergency medication: N/A Justification of Continued Inpatient Treatment: Patient requires interruption of current crisis, medication adjustments, and a safe and supportive environment.
[2020-06-24 07:20] LABS: BASOPHILS # (AUTO) 0.1 X10'3 (0-0.2); BASOPHILS % (AUTO) 1.3 % (0-1); EOSINOPHILS # (AUTO) 0.1 X10'3 (0-0.9); EOSINOPHILS % (AUTO) 1.7 % (0-6); HEMATOCRIT 47.5 % (42.0-52.0); HEMOGLOBIN 15.8 g/dl (14.0-17.9); LYMPHOCYTES # (AUTO) 2.3 X10'3 (1.1-4.8); LYMPHOCYTES % (AUTO) 30.9 % (21-51); MEAN CORPUSCULAR HEMOGLOBIN 31.9 PG (27.0-31.0); MEAN CORPUSCULAR HGB CONC 33.3 g/dL (33.0-36.5); MEAN CORPUSCULAR VOLUME 95.6 FL (78-98); MONOCYTES # (AUTO) 0.7 X10'3 (0-0.9); MONOCYTES % (AUTO) 9.3 % (2-12); NEUTROPHILS # (AUTO) 4.2 X10'3 (1.8-7.7); NEUTROPHILS % (AUTO) 56.8 % (42-75); PLATELET COUNT 60 X10'3 (140-440); RED BLOOD COUNT 4.96 X10'6 (4.70-6.10); RED CELL DISTRIBUTION WIDTH 13.1 % (11.5-14.5); WHITE BLOOD COUNT 7.3 X10'3 (4.5-11.0)
[2020-06-24] MEDS: tamsulosin 0.4mg capsule PO SCH (08:11)
[2020-06-24] MEDS: diltiazem CD 180mg cap (once-daily) PO SCH (08:11)
[2020-06-24] MEDS: nicotine 14mg patch - 24hr TD SCH (08:12)
[2020-06-24 09:47] VITALS: BP 131/90
--- NOTE | 2020-06-24 17:10 | NUR ---
NURSING PROGRESS NOTE Mikal: Legal hold: Vol Client on involuntary status for GD Report received from Ana Cortes RN with use of SBAR Why are they here: Pt. was transferred from [facility]. Pt. is currently homeless and was placed on a 5150 for GD after drinking and getting on a bus to what he thought was [place], however ending up in [place]. Pt. has a history of schizoaffective disorder with Bipolar, and has had multiple previous psych hospital admissions. His father two years ago, and it was reported that since that time he has been non-compliant with medications or treatment. Pt's toxicology screen was positive for amphetamines, but he denies any recent drug use. He does admit to drinking approximately a 6-pack of beer/day. Pt. scored as a high suicide risk on the [place] Suicide Risk Assessment, with a plan to jump in front of a bus. However, he is able to contract for safety while on the unit. Pt. also reports A/DUMONT which have been worsening since the age of 59. When questioned further regarding these he states, "It is a man and a woman. They mostly bash on me and expose all of my shortcomings." He denies any V/DUMONT. Assessment What has happened this shift: The patient was compliant with med pass after breakfast. He reports that he's feeling better, still a little paranoid, but not so much as before. He says he hears the same voices as before, " a bunch of women telling me they are out to get me." The patient is well oriented, but is easily distracted as we talk. He is compliant with medications. States that he feels good and that the medications are helping. Talked about his son in [place] and possibly going to stay with him as long as he stays on his medication regime. S/I, H/I: Denies A/VH: Admits to on-going hallucinations and paranoia. Sleep: ADL's: Independent. Group attendance: No Were meds taken: Yes. Any med S/E: None reported or observed. Mental Status Exam Appearance: Older man with long black hair pulled back, wearing appropriate street clothes. . Eye contact: Good. Behavior: Pleasant, cooperative, engaging, little paranoid. Speech: Clear, but mumbles at times. Mood: "Good Affect: Congruent to mood. Thought process: Circumstantial Thought Content: Getting better. Cognition: Alert. Insight: Poor. Judgment: Fair Interventions PRN's used: None. Therapeutic interventions: Maintained a safe and therapeutic environment, provided clear and simple instructions, reoriented to reality as needed, encouraged independent performance of ADLs and participation on the unit, obtained ordered urine specimen which was WNL, and maintained Q 15min safety checks. Restraints/seclusion/emergency medication: N/A Justification of Continued Inpatient Treatment: Patient requires interruption of current crisis, medication adjustments, and a safe and supportive environment.
[2020-06-24] MEDS: ARIPIPRAZOLE 10 MG TABLET PO SCH (20:14)
[2020-06-24] MEDS: traZODone 50mg tablet PO SCH (20:15)
[2020-06-24 20:39] VITALS: BP 128/70
[2020-06-24] MEDS ORDERED: warfarin 10mg tablet PO ONE (21:00)
--- NOTE | 2020-06-25 01:20 | NUR ---
NURSING PROGRESS NOTE Legal hold: 5250 Client on involuntary status for GD Report received from DESTINI Chau with use of SBAR Why are they here: Pt. was transferred from [facility]. Pt. is currently homeless and was placed on a 5150 for GD after drinking and getting on a bus to what he thought was [place], however ending up in [place]. Pt. has a history of schizoaffective disorder with Bipolar, and has had multiple previous psych hospital admissions. His father two years ago, and it was reported that since that time he has been non-compliant with medications or treatment. Pt's toxicology screen was positive for amphetamines, but he denies any recent drug use. He does admit to drinking approximately a 6-pack of beer/day. Pt. scored as a high suicide risk on the [place] Suicide Risk Assessment, with a plan to jump in front of a bus. However, he is able to contract for safety while on the unit. Pt. also reports A/DUMONT which have been worsening since the age of 59. When questioned further regarding these he states, "It is a man and a woman. They mostly bash on me and expose all of my shortcomings." He denies any V/DUMONT. Assessment What has happened this shift: The patient was seen at bedside for 1:1. He looks relaxed, as if something that was worrying him is gone. He acts more focused, and less distracted, not looking at every movement. He pokes fun at himself and laughs. The patient denies hallucinations today, "I'm almost feeling hopeful." He spent the evening watching tv from the corner of the community room. Was compliant with HS meds and retired to bed soon after. S/I, H/I: Denies A/VH: Denies. Sleep: See sleep assessment ADL's: Independent. 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 Were meds taken: Yes. Any med S/E: None reported or observed. Mental Status Exam Appearance: Older man with long black hair pulled back, wearing appropriate street clothes. . Eye contact: Good. Behavior: Pleasant, cooperative, engaging, little paranoid, talkative. Speech: Clear, but mumbles at times. Mood: "Fine Affect: Congruent to mood. Thought process: Circumstantial Thought Content: Getting better. Cognition: Alert. Insight: Poor. Judgment: Fair Interventions PRN's used: None. Therapeutic interventions: Maintained a safe and therapeutic environment, provided clear and simple instructions, reoriented to reality as needed, encouraged independent performance of ADLs and participation on the unit, obtained ordered urine specimen which was WNL, and maintained Q 15min safety checks. Restraints/seclusion/emergency medication: N/A Justification of Continued Inpatient Treatment: Patient requires interruption of current crisis, medication adjustments, and a safe and supportive environment.
[2020-06-25 07:27] LABS: BASOPHILS # (AUTO) 0.1 X10'3 (0-0.2); BASOPHILS % (AUTO) 1.5 % (0-1); EOSINOPHILS # (AUTO) 0.1 X10'3 (0-0.9); HEMATOCRIT 45.7 % (42.0-52.0); HEMOGLOBIN 15.2 g/dl (14.0-17.9); LYMPHOCYTES # (AUTO) 2.2 X10'3 (1.1-4.8); LYMPHOCYTES % (AUTO) 30.2 % (21-51); MEAN CORPUSCULAR HEMOGLOBIN 31.6 PG (27.0-31.0); MEAN CORPUSCULAR HGB CONC 33.2 g/dL (33.0-36.5); MEAN CORPUSCULAR VOLUME 95.3 FL (78-98); MEAN PLATELET VOLUME 7.6 FL (7.4-10.4); MONOCYTES # (AUTO) 0.7 X10'3 (0-0.9); MONOCYTES % (AUTO) 9.3 % (2-12); NEUTROPHILS # (AUTO) 4.2 X10'3 (1.8-7.7); PLATELET COUNT 64 X10'3 (140-440); RED CELL DISTRIBUTION WIDTH 13.1 % (11.5-14.5); WHITE BLOOD COUNT 7.4 X10'3 (4.5-11.0)
[2020-06-25] MEDS: tamsulosin 0.4mg capsule PO SCH (07:52)
[2020-06-25] MEDS: diltiazem CD 180mg cap (once-daily) PO SCH (07:52)
[2020-06-25] MEDS: nicotine 14mg patch - 24hr TD SCH (07:53)
[2020-06-25 08:00] VITALS: BP 113/80
[2020-06-25 08:54] LABS: PARTIAL THROMBOPLASTIN TIME 32 SECONDS (22-32)
[2020-06-25 09:03] LABS: PLATELET ESTIMATE DECREASED; TOTAL CELLS COUNTED 100
--- NOTE | 2020-06-25 09:07 | NUR ---
PAGER ID: [phone] MESSAGE: [facility] pt Dieudonne, Eri room 326A: Dx: A Fib, patients PT/PTT sub therapeutic. PT 13.1 INR 1.3 APTT 32 Plt 64. Please assess and give recommendation. Caren [phone]
--- NOTE | 2020-06-25 11:08 | NUR ---
Sent another page to hospitalist regarding pt's INR, PT, PTT levels and to advise/recommend treatment.
--- NOTE | 2020-06-25 11:24 | NUR ---
RN spoke with hospitalist regarding pt.'s sub-therapeutic PT, INR and APTT. Hospitalist instructed RN to contact pharmacist because the order is for "pharmacy to dose". RN spoke with Pharmacist Hayden who informed RN that coummadin will be increased and labs will be retaken tomorrow. RN relayed info to Dr. Jerome.
--- NOTE | 2020-06-25 17:25 | NUR ---
NURSING PROGRESS NOTE Mikal: Legal hold: Vol Client on involuntary status for GD Report received from DESTINI Richmond with use of SBAR Why are they here: Pt. was transferred from [facility]. Pt. is currently homeless and was placed on a 5150 for GD after drinking and getting on a bus to what he thought was [place], however ending up in [place]. Pt. has a history of schizoaffective disorder with Bipolar, and has had multiple previous psych hospital admissions. His father two years ago, and it was reported that since that time he has been non-compliant with medications or treatment. Pt's toxicology screen was positive for amphetamines, but he denies any recent drug use. He does admit to drinking approximately a 6-pack of beer/day. Pt. scored as a high suicide risk on the [place] Suicide Risk Assessment, with a plan to jump in front of a bus. However, he is able to contract for safety while on the unit. Pt. also reports A/DUMONT which have been worsening since the age of 59. When questioned further regarding these he states, "It is a man and a woman. They mostly bash on me and expose all of my shortcomings." He denies any V/DUMONT. Assessment What has happened this shift: Pt requested meds this morning before breakfast, pt sitting up in bed looking relaxed and well rested. He acts more focused, and less distracted, said he had a restful sleep with no hearing voices at the window. The patient denies hallucinations today. Pt was seen in community room watching TV before snack. Pt observed clipping toe nails in room. S/I, H/I: Denies A/VH: Denies. Sleep: See sleep assessment ADL's: Independent. Group attendance: No Were meds taken: Yes. Any med S/E: None reported or observed. Mental Status Exam Appearance: Older man with long black hair pulled back, wearing appropriate street clothes. . Eye contact: Good. Behavior: Pleasant, cooperative, engaging, little paranoid, talkative. Speech: Clear, but mumbles at times. Mood: "Fine Affect: Congruent to mood. Thought process: Circumstantial Thought Content: Getting better. Cognition: Alert. Insight: Poor. Judgment: Fair Interventions PRN's used: None. Therapeutic interventions: Maintained a safe and therapeutic environment, provided clear and simple instructions, reoriented to reality as needed, encouraged independent performance of ADLs and participation on the unit, obtained ordered urine specimen which was WNL, and maintained Q 15min safety checks. Restraints/seclusion/emergency medication: N/A Justification of Continued Inpatient Treatment: Patient requires interruption of current crisis, medication adjustments, and a safe and supportive environment.
[2020-06-25 20:00] VITALS: BP 104/72
[2020-06-25] MEDS: ARIPIPRAZOLE 10 MG TABLET PO SCH (20:06)
[2020-06-25] MEDS: traZODone 50mg tablet PO SCH (20:09)
[2020-06-25] MEDS ORDERED: warfarin 10mg tablet PO ONE (21:00)
[2020-06-25] MEDS ORDERED: warfarin 2.5mg tablet PO ONE (21:00)
--- NOTE | 2020-06-26 01:47 | NUR ---
NURSING PROGRESS NOTE Legal hold: 5250 Client on involuntary status for GD Report received from DESTINI Chau with use of SBAR Why are they here: Pt. was transferred from [facility]. Pt. is currently homeless and was placed on a 5150 for GD after drinking and getting on a bus to what he thought was [place], however ending up in [place]. Pt. has a history of schizoaffective disorder with Bipolar, and has had multiple previous psych hospital admissions. His father two years ago, and it was reported that since that time he has been non-compliant with medications or treatment. Pt's toxicology screen was positive for amphetamines, but he denies any recent drug use. He does admit to drinking approximately a 6-pack of beer/day. Pt. scored as a high suicide risk on the [place] Suicide Risk Assessment, with a plan to jump in front of a bus. However, he is able to contract for safety while on the unit. Pt. also reports A/DUMONT which have been worsening since the age of 59. When questioned further regarding these he states, "It is a man and a woman. They mostly bash on me and expose all of my shortcomings." He denies any V/DUMONT. Assessment What has happened this shift: The patient was seen at bedside for 1:1. He was sleeping and tells this verse writer that he doesn't feel much like talking tonight. The patient is thinking clearly, smiles often, and doesn't seem paranoid tonight. His speech is clear, less tangential, and he's feeling hopeful. He talks to his youngest son often, and is less focused on his hepatic issues. The patient got up for snack, but retreated to his room soon after. He's denying SI/HI, and AV/H. S/I, H/I: Denies A/VH: Denies. Sleep: See sleep assessment ADL's: Independent. 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 Were meds taken: Yes. Any med S/E: None reported or observed. Mental Status Exam Appearance: Older man with long black hair pulled back, wearing appropriate street clothes. . Eye contact: Good. Behavior: Pleasant, cooperative, engaging, talkative. Speech: Clear, but mumbles at times. Mood: "Fine Affect: Congruent to mood. Thought process: Circumstantial Thought Content: Getting better. Cognition: Alert. Insight: Poor. Judgment: Fair Interventions PRN's used: None. Therapeutic interventions: Maintained a safe and therapeutic environment, provided clear and simple instructions, reoriented to reality as needed, encouraged independent performance of ADLs and participation on the unit, obtained ordered urine specimen which was WNL, and maintained Q 15min safety checks. Restraints/seclusion/emergency medication: N/A Justification of Continued Inpatient Treatment: Patient requires interruption of current crisis, medication adjustments, and a safe and supportive environment.
[2020-06-26 07:10] LABS: BASOPHILS # (AUTO) 0.1 X10'3 (0-0.2); BASOPHILS % (AUTO) 1.5 % (0-1); EOSINOPHILS # (AUTO) 0.1 X10'3 (0-0.9); EOSINOPHILS % (AUTO) 1.7 % (0-6); HEMATOCRIT 44.9 % (42.0-52.0); HEMOGLOBIN 15.1 g/dl (14.0-17.9); LYMPHOCYTES # (AUTO) 2.2 X10'3 (1.1-4.8); LYMPHOCYTES % (AUTO) 29.6 % (21-51); MEAN CORPUSCULAR HEMOGLOBIN 31.8 PG (27.0-31.0); MEAN CORPUSCULAR HGB CONC 33.6 g/dL (33.0-36.5); MEAN CORPUSCULAR VOLUME 94.6 FL (78-98); MEAN PLATELET VOLUME 7.8 FL (7.4-10.4); MONOCYTES # (AUTO) 0.6 X10'3 (0-0.9); MONOCYTES % (AUTO) 8.5 % (2-12); NEUTROPHILS # (AUTO) 4.4 X10'3 (1.8-7.7); NEUTROPHILS % (AUTO) 58.7 % (42-75); PLATELET COUNT 68 X10'3 (140-440); RED BLOOD COUNT 4.75 X10'6 (4.70-6.10); RED CELL DISTRIBUTION WIDTH 13.1 % (11.5-14.5); WHITE BLOOD COUNT 7.6 X10'3 (4.5-11.0)
[2020-06-26 07:44] VITALS: BP 107/67
[2020-06-26] MEDS: nicotine 14mg patch - 24hr TD SCH (07:46)
[2020-06-26] MEDS: diltiazem CD 180mg cap (once-daily) PO SCH (07:46)
[2020-06-26] MEDS: tamsulosin 0.4mg capsule PO SCH (07:46)
--- NOTE | 2020-06-26 14:11 | NUR ---
Reassessment: Pt continues eating well documented with 75-100% PO intake on a heart healthy diet. LBM 06/24, receiving PRN bowel care. No nutrition intervention warranted at this time. Will continue to follow. Recommendations: 1) Advance to regular diet; lipid panel WNL 2) Bowel care per rx 3) Scaled weights per rx Addendum: 06/26/20 at [address] Amended: Links added.
--- NOTE | 2020-06-26 15:40 | NUR ---
DISCHARGE NOTE: Patient's belongings were inventoried and given to patient. Patient denies SI. Patient is going to go stay with his son. Patient is discharged in stable condition.
[2020-06-26] MEDS ORDERED: ARIP10TA15 PO (15:59)
[2020-06-26] MEDS ORDERED: DILT180C66 PO (15:59)
[2020-06-26] MEDS ORDERED: tamsulosin capsule PO (15:59)
[2020-06-26] MEDS ORDERED: WARF2.5T82 PO (15:59)
[2020-06-26] MEDS ORDERED: NICO-668 BC (15:59)
[2020-06-26] MEDS ORDERED: WARF10TA45 PO (15:59)
[2020-06-26] MEDS ORDERED: NICO-631 TD (15:59)
[2020-06-26] MEDS ORDERED: TRAZ-251 PO (15:59)
[2020-06-26] MEDS ORDERED: warfarin 2.5mg tablet PO ONE (21:00)
[2020-06-26] MEDS ORDERED: warfarin 10mg tablet PO ONE (21:00)
== END 2020-06-26 16:40 | disposition home or self-care (01) | DRG 885 ==
LOC: ADULT MH 06-17 15:07
PROVIDERS: ADMIT Psychiatry & Neurology Psychiatry; ATTEND Psychiatry & Neurology Psychiatry
PROC: 3E0234Z Introduction of Serum, Toxoid and Vaccine into Muscle, Percutaneous Approach (ICD-10-PCS; principal; 2020-06-18)
PROC: 3E02340 Introduction of Influenza Vaccine into Muscle, Percutaneous Approach (ICD-10-PCS; 2020-06-18)
DX: F29 Unspecified psychosis not due to a substance or known physiological condition (principal); F10.239 Alcohol dependence with withdrawal, unspecified; R45.851 Suicidal ideations; I48.91 Unspecified atrial fibrillation; D69.6 Thrombocytopenia, unspecified; E78.5 Hyperlipidemia, unspecified; F15.10 Other stimulant abuse, uncomplicated; F17.200 Nicotine dependence, unspecified, uncomplicated; I10 Essential (primary) hypertension; N40.0 Benign prostatic hyperplasia without lower urinary tract symptoms; K70.10 Alcoholic hepatitis without ascites; Z79.01 Long term (current) use of anticoagulants; Z79.899 Other long term (current) drug therapy; Z81.1 Family history of alcohol abuse and dependence; Z59.0 Homelessness; Z83.3 Family history of diabetes mellitus; Z91.19 Patient's noncompliance with other medical treatment and regimen; Z23 Encounter for immunization; Z71.6 Tobacco abuse counseling
CPT/HCPCS: 36415; 80053; 80061; 81003; 84443; 85007; 85025; 85610; 85730; 87081; 90732; Q2039